=== PATIENT | female | born 1995 | race Caucasian/White ===

== ENCOUNTER → 2020-04-25 | Outpatient (CLI) | payer OTHER ==
[~2020-04-25] MED LIST: CETI-450 PO
[2020-04-26 06:06] LABS: RUBELLA AB IGG-REFLAB 1.77 index (Immune >0.99)
== END | disposition home or self-care (01) ==
LOC: LABMN 14:06
PROVIDERS: ATTEND Internal Medicine
DX: Z02.1 Encounter for pre-employment examination (principal)
CPT/HCPCS: 86706; 86735; 86762; 86765